=== PATIENT | male | born 1995 | race Caucasian/White ===

== ENCOUNTER 2017-03-19 16:15 | Inpatient (IN) | payer SELFPAY ==
[2017-03-19 17:14] VITALS: BMI 35.0
--- NOTE | 2017-03-19 20:20 | HP ---
COWS - Scale Resting Pulse: 1= MO 81-100 Sweatin=Flushed/Facial Moisture Restless Observation: 3= Extraneous Movement Pupil Size: 2= Moderately Dilated Bone or Joint Aches: 2= Severe Diffuse Aches Runny Nose/ Eye Tearin= Runny Nose/Eyes GI Upset > 30mins: 3= Vomiting/Diarrhea Tremor Observation: 2= Slight Tremor Visible Yawning Observation: 2= >3x During Session Anxiety or Irritability: 2=Irritable/Anxious Goose Flesh Skin: 0=Smooth Skin COWS Score: 21 Admission ROS BHS - HPI Chief Complaint: I NEED HELP TO STOP USING HEROIN AND COCAINE,MARIJUANA Allergies/Adverse Reactions: Allergies Allergy/AdvReac Type Severity Reaction Status Date / Time No Known Allergies Allergy Verified 03/19/17 19:47 History of Present Illness: THIS 21 YEARS OLD MALE WITH HEROIN,COCAINE DEPENDENCE AND PCP,SEEKING DETOX, NEVER BEEN IN DETOX BEFORE, ASTHMA NEED HELP TO STOP Exam Limitations: No Limitations - Ebola screening Have you traveled outside of the country in the last 21 days: No Have you had contact with anyone from an Ebola affected area: No Have you been sick,other than usual withdrawal symptoms: No Do you have a fever: No - Review of Systems Constitutional: Chills, Diaphoresis, Loss of Appetite, Malaise, Night Sweats, Changes in sleep, Weakness EENT: reports: Tearing, Nose Congestion Respiratory: reports: No Symptoms reported, Other (ASTHMA) Cardiac: reports: Palpitations GI: reports: Diarrhea, Nausea, Vomiting, Abdominal cramping : reports: No Symptoms Reported Musculoskeletal: reports: Back Pain, Joint Pain, Muscle Pain, Joint Stiffness Integumentary: reports: Dryness Neuro: reports: Headache, Tremors Endocrine: reports: No Symptoms Reported Hematology: reports: No Symptoms Reported Psychiatric: reports: Anxious, Depressed Patient History - Patient Medical History Hx Anemia: No Hx Asthma: Yes (ON ALBUTEROL INHALER) Hx Chronic Obstructive Pulmonary Disease (COPD): No Hx Cancer: No Hx Cardiac Disorders: No Hx Congestive Heart Failure: No Hx Hypertension: No Hx Hypercholesterolemia: No Hx Pacemaker: No HX Cerebrovascular Accident: No Hx Seizures: No Hx Dementia: No Hx Diabetes: No Hx Gastrointestinal Disorders: No Hx Liver Disease: No Hx Genitourinary Disorders: No Hx Sexually Transmitted Disorders: No Hx Renal Disease (ESRD): No Hx Thyroid Disease: No Hx Human Immunodeficiency Virus (HIV): No (LAST 2017 NEGATIVE) Hx Hepatitis C: No Hx Depression: Yes (ANXIETY) Hx Suicide Attempt: No Hx Bipolar Disorder: No Hx Schizophrenia: No Other Medical History: NO SUICIDAL,NO HOMICIDAL - Patient Surgical History Past Surgical History: Yes Hx Neurologic Surgery: No Hx Cataract Extraction: No Hx Cardiac Surgery: No Hx Lung Surgery: No Hx Breast Surgery: No Hx Breast Biopsy: No Hx Abdominal Surgery: No Hx Appendectomy: No Hx Cholecystectomy: No Hx Genitourinary Surgery: No Hx Section: No Hx Orthopedic Surgery: Yes (LEFT ARM AT AGE 87 YEARS OLD) Anesthesia Reaction: No - PPD History Previous Implant?: Yes Documented Results: Negative w/o proof Implanted On Prior R Admission?: No PPD to be Administered?: Yes - Smoking Cessation Smoking history: Current every day smoker Have you smoked in the past 12 months: Yes Aproximately how many cigarettes per day: 20 Hx Chewing Tobacco Use: No Initiated information on smoking cessation: Yes 'Breaking Loose' booklet given: 03/19/17 - Substance & Tx. History Hx Alcohol Use: No Hx Substance Use: Yes Substance Use Type: Cocaine, Heroin Hx Substance Use Treatment: No - Substances Abused Heroin Route: Inhalation Frequency: Daily Amount used: 7 BAGS Age of first use: 19 Date of Last Use: 03/19/17 Crack Route: Smoking Frequency: Daily Amount used: 1 BLUNT Age of first use: 19 Date of Last Use: 03/19/17 PCP Route: Smoking Frequency: 1-2 times per week Amount used: 1 BLUNT Age of first use: 19 Date of Last Use: 03/16/17 Family Disease History - Family Disease History Family History: Denies Admission Physical Exam [facility] - Vital Signs Vital Signs: Vital Signs - 24 hr 03/19/17 17:12 Temperature 97.4 F L Pulse Rate 90 Respiratory 18 Rate Blood Pressure 131/71 - Physical General Appearance: Yes: Moderate Distress, Tremorous, Irritable, Sweating, Anxious HEENTM: Yes: Normal ENT Inspection, Normocephalic, KAREN, Pharynx Normal Respiratory: Yes: Lungs Clear, Normal Breath Sounds, No Respiratory Distress Neck: Yes: Within Normal Limits, No masses,lesions,Nodules, Supple, Trachea in good position Breast: Yes: Within Normal Limits Cardiology: Yes: Within Normal Limits, Regular Rhythm, Regular Rate, S1, S2 Abdominal: Yes: Within Normal Limits, Normal Bowel Sounds, Non Tender, Soft Genitourinary: Yes: Within Normal Limits Back: Yes: Normal Inspection, Muscle Spasm Musculoskeletal: Yes: full range of Motion, Back pain, Joint Stiffness, Muscle Pain Extremities: Yes: Within Normal Limits, Normal Range of Motion, Tremors Neurological: Yes: Alert, Motor Strength 5/5, Normal Mood/Affect Integumentary: Yes: Dry Lymphatic: Yes: Within Normal Limits - Diagnostic (1) Opioid dependence with withdrawal Current Visit: Yes Status: Acute (2) Cocaine dependence Current Visit: Yes Status: Acute (3) PCP (phencyclidine) abuse Current Visit: Yes Status: Acute (4) Nicotine dependence Current Visit: Yes Status: Acute (5) Asthma Current Visit: Yes Status: Acute Cleared for Admission [facility] - Detox or Rehab [facility] Level of Care: Medically Managed Detox Regimen/Protocol: Methadone [facility] Breath Alcohol Content Breath Alcohol Content: 0 Urine Drug Screen - Results Drug Screen Negative: No Urine Drug Screen Results: NUHA-Cocaine, OPI-Opiates, PCP-Phencyclidine, BZO- Benzodiazepines
[2017-03-19] MEDS ORDERED: hydrOXYzine PAMOATE 25 MG CAPSULE (FP) PO PRN (20:29)
[2017-03-19] MEDS ORDERED: IBUPROFEN 400 MG TABLET (FP) PO PRN (20:29)
[2017-03-19] MEDS ORDERED: guaiFENesin/D-METHORPHAN HB 10 ML UNIT-DOSE CUPS PO PRN (20:29)
[2017-03-19] MEDS ORDERED: diphenhydrAMINE HCL 50 MG CAPSULE PO PRN (20:29)
[2017-03-19] MEDS ORDERED: MENTHOL/PHENOL 1 EACH UD MM PRN (20:29)
[2017-03-19] MEDS ORDERED: MAGNESIUM HYDROX 2400MG/30ML ORAL SUSPENSION 30 ML CUP PO PRN (20:29)
[2017-03-19] MEDS ORDERED: ACETAMINOPHEN 325 MG TABLET (FP) PO PRN (20:29)
[2017-03-19] MEDS ORDERED: MAG HYDROX/AL HYDROX/SIMETH 30 ML UNIT-DOSE CUP PO PRN (20:29)
[2017-03-19] MEDS ORDERED: P-EPHED 60MG/TRIPROLIDI 2.5MG TABLET PO PRN (20:29)
[2017-03-19] MEDS ORDERED: LOPERAMIDE HCL 2 MG CAPSULE PO PRN (20:29)
[2017-03-19] MEDS ORDERED: METHADONE HCL 10 MG TABLET (FOR DETOX USE ONLY) PO ONE ×2 (20:29→23:00)
[2017-03-19] MEDS ORDERED: MAGNESIUM CITRATE 300 ML BOTTLE PO PRN (20:29)
[2017-03-19] MEDS ORDERED: NICOTINE 21 MG/24 HOURS TOPICAL PATCH TD SCH (20:30)
[2017-03-19] MEDS ORDERED: ALBUTEROL SO4 6.7 GM HFA INHALER IH PRN (20:33)
[2017-03-19] MEDS: diazePAM 5 MG TABLET PO PRN (21:40)
[2017-03-19] MEDS ORDERED: THIAMINE HCL 100 MG TABLET (FP) PO SCH (22:00)
[2017-03-20] MEDS: diazePAM 5 MG TABLET PO PRN (05:30)
--- NOTE | 2017-03-20 09:12 | CONSULT ---
[facility] Psychiatric Consult - Data Date of interview: 03/20/17 Admission source: [facility] Identifying data: Patient refused to talk to this service writer.Staff is made aware.Consult cannot be done.
[2017-03-20 09:47] VITALS: BP 116/78; PULSE 76; TEMP 96.8
[2017-03-20] MEDS ORDERED: PRENATAL VITAMINS W/ FOLIC ACID TABLET (FP) PO SCH (10:00)
[2017-03-20] MEDS ORDERED: METHADONE HCL 10 MG TABLET (FOR DETOX USE ONLY) PO ONE (10:00)
[2017-03-20 10:29] LABS: MCH 30.9 pg (25.7-33.7); MEAN CELL VOLUME 90.9 fl (80-96); MEAN PLT VOLUME 10.1 fl (7.5-11.1); PLATELET COUNT 136 K/MM3 (134-434); RDW 13.1 % (11.9-15.9); WHITE BLOOD COUNT 8.7 K/mm3 (4.0-10.0)
[2017-03-20 12:03] LABS: ALBUMIN 3.5 g/dl (3.4-5.0); ALK PHOS 72 U/L (45-117); ANION GAP 11 (8-16); BILIRUBIN,TOTAL 0.6 mg/dL (0.2-1.0); CALCIUM 8.8 mg/dL (8.5-10.1); CO2 26 mmol/L (21-32); CREATININE 0.9 mg/dL (0.7-1.3); GLUCOSE,RANDOM 106 mg/dL (74-106); SGOT/AST 19 U/L (15-37); SGPT/ALT 22 U/L (12-78); TOT PROT 6.5 g/dl (6.4-8.2)
--- NOTE | 2017-03-20 14:00 | DS ---
[facility] Detox Discharge Summary Admission Date: 03/19/17 Discharge Date: 03/20/17 - History Present History: Cocaine Dependence, Opioid Dependence Pertinent Past History: Asthma - Physical Exam Results Vital Signs: Vital Signs Temperature 96.8 F L 03/20/17 09:46 Pulse Rate 76 03/20/17 09:46 Respiratory Rate 18 03/20/17 09:46 Blood Pressure 116/78 03/20/17 09:46 O2 Sat by Pulse Oximetry (%) Pertinent Admission Physical Exam Findings: Withdrawal sx. Laboratory Last Values WBC 8.7 K/mm3 (4.0-10.0) 03/20/17 06:30 RBC 4.66 M/mm3 (4.00-5.60) 03/20/17 06:30 Hgb 14.4 GM/dL (11.7-16.9) 03/20/17 06:30 Hct 42.4 % (35.4-49) 03/20/17 06:30 MCV 90.9 fl (80-96) 03/20/17 06:30 MCH 30.9 pg (25.7-33.7) 03/20/17 06:30 MCHC 34.0 g/dl (32.0-35.9) 03/20/17 06:30 RDW 13.1 % (11.9-15.9) 03/20/17 06:30 Plt Count 136 K/MM3 (134-434) 03/20/17 06:30 MPV 10.1 fl (7.5-11.1) 03/20/17 06:30 Sodium 140 mmol/L (136-145) 03/20/17 06:30 Potassium 3.6 mmol/L (3.5-5.1) 03/20/17 06:30 Chloride 103 mmol/L (98-107) 03/20/17 06:30 Carbon Dioxide 26 mmol/L (21-32) 03/20/17 06:30 Anion Gap 11 (8-16) 03/20/17 06:30 BUN 15 mg/dL (7-18) 03/20/17 06:30 Creatinine 0.9 mg/dL (0.7-1.3) 03/20/17 06:30 Creat Clearance w eGFR > 60 (>60) 03/20/17 06:30 Random Glucose 106 mg/dL (74-106) 03/20/17 06:30 Calcium 8.8 mg/dL (8.5-10.1) 03/20/17 06:30 Total Bilirubin 0.6 mg/dL (0.2-1.0) 03/20/17 06:30 AST 19 U/L (15-37) 03/20/17 06:30 ALT 22 U/L (12-78) 03/20/17 06:30 Alkaline Phosphatase 72 U/L (45-117) 03/20/17 06:30 Total Protein 6.5 g/dl (6.4-8.2) 03/20/17 06:30 Albumin 3.5 g/dl (3.4-5.0) 03/20/17 06:30 RPR Titer Nonreactive (NONREACTIVE) 03/20/17 06:30 labs noted - Treatment Patient has Accepted a Rehab Referral to: [facility] - Medication Discharge Medications: Ambulatory Orders NK [No Known Home Medication] 03/19/17 - Diagnosis (1) Asthma Status: Acute Qualifiers: Asthma severity: mild intermittent Asthma complication type: uncomplicated Qualified Code(s): J45.20 - Mild intermittent asthma, uncomplicated (2) Cocaine dependence Status: Acute Qualifiers: Substance use status: uncomplicated Qualified Code(s): F14.20 - Cocaine dependence, uncomplicated (3) Nicotine dependence Status: Acute Qualifiers: Nicotine product type: cigarettes Substance use status: uncomplicated Qualified Code(s): F17.210 - Nicotine dependence, cigarettes, uncomplicated (4) Opioid dependence with withdrawal Status: Acute - AMA Did Patient Leave Against Medical Advice: Yes
--- NOTE | 2017-03-20 14:08 | EKG ---
Test Reason : Blood Pressure : / mmHG Vent. Rate : 091 BPM Atrial Rate : 091 BPM P-R Int : 156 ms QRS Dur : 092 ms QT Int : 374 ms P-R-T Axes : 073 063 045 degrees QTc Int : 460 ms NORMAL SINUS RHYTHM POSSIBLE LEFT ATRIAL ENLARGEMENT BORDERLINE ECG NO PREVIOUS ECGS AVAILABLE CLINICAL CORRELATION IS RECOMMENDED Confirmed by JESUS JAMES MD ([id number]) on 03/20/2017 2:08:09 PM Referred By: Confirmed By:JESUS JAMES MD
[2017-03-21] MEDS ORDERED: METHADONE HCL 5 MG TABLET (FOR DETOX USE ONLY) PO ONE (10:00)
[2017-03-22] MEDS ORDERED: METHADONE HCL 5 MG TABLET (FOR DETOX USE ONLY) PO ONE (10:00)
[2017-03-23] MEDS ORDERED: METHADONE HCL 10 MG TABLET (FOR DETOX USE ONLY) PO ONE (10:00)
[2017-03-24] MEDS ORDERED: METHADONE HCL 5 MG TABLET (FOR DETOX USE ONLY) PO ONE (06:00)
== END 2017-03-20 09:24 | disposition left against medical advice (07) | DRG 770 ==
LOC: YASAS 16:15 → Y3N 20:03
PROVIDERS: ADMIT Internal Medicine; ATTEND Internal Medicine
PROC: HZ2ZZZZ Detoxification Services for Substance Abuse Treatment (ICD-10-PCS; principal; 2017-03-20)
DX: F11.23 Opioid dependence with withdrawal (principal); F14.20 Cocaine dependence, uncomplicated; F17.210 Nicotine dependence, cigarettes, uncomplicated; F16.10 Hallucinogen abuse, uncomplicated; F41.8 Other specified anxiety disorders; J45.20 Mild intermittent asthma, uncomplicated
CPT/HCPCS: 36415; 80053; 85027; 86593; 93005; 93010